=== PATIENT | male | born 1955 | race Caucasian/White ===

== ENCOUNTER 2020-04-06 12:47 | Day surgery (SDC) | payer OTHER ==
[~2020-04-06] VITALS: Ht 180.3 cm; Wt 118.2 kg
[~2020-04-06 12:47] MED LIST: Augmentin 875-1 EACH PO; BUDE6HFA INH; ESCI10 PO; ESCI20 PO; MULTI-VITAMIN1 EAC2 PO; PANT40 PO; PRAV20 PO; Pravastatin Sod20 MG PO; Prinivil10 MG PO; Prozac40 MG PO; Roxicodone5 MG PO; Synthroid/Le0.075 MG PO; THEO400 PO; VALA500 PO; Ventolin/Prove6.7 GM INH
--- NOTE | 2020-04-06 13:43 | NUR ---
04/06/20 1343 Sridevi Mario MAC CHANGED TO NURSE SEDATION AFTER ANESTHESIOLOGIST ASSESSMENT. PT AGREEABLE.
== END 2020-04-06 14:53 | disposition home or self-care (01) ==
LOC: ORSCSDS 12:47
PROVIDERS: Internal Medicine Gastroenterology
PROC: 0DBN8ZX Excision of Sigmoid Colon, Via Natural or Artificial Opening Endoscopic, Diagnostic (ICD-10-PCS; principal; 2020-04-06 14:00)
PROC: 0DBL8ZX Excision of Transverse Colon, Via Natural or Artificial Opening Endoscopic, Diagnostic (ICD-10-PCS; principal; 2020-04-06 14:00)
PROC: 0DBH8ZX Excision of Cecum, Via Natural or Artificial Opening Endoscopic, Diagnostic (ICD-10-PCS; principal; 2020-04-06 14:00)
DX: Z12.11 Encounter for screening for malignant neoplasm of colon (principal); Z86.010 Personal history of colon polyps; D12.5 Benign neoplasm of sigmoid colon; D12.3 Benign neoplasm of transverse colon; D12.0 Benign neoplasm of cecum; K57.30 Diverticulosis of large intestine without perforation or abscess without bleeding; K64.4 Residual hemorrhoidal skin tags; Z79.899 Other long term (current) drug therapy; I10 Essential (primary) hypertension; G47.33 Obstructive sleep apnea (adult) (pediatric); J44.9 Chronic obstructive pulmonary disease, unspecified; K21.9 Gastro-esophageal reflux disease without esophagitis; K76.0 Fatty (change of) liver, not elsewhere classified
CPT/HCPCS: 88305; J2704; J7120

== ENCOUNTER 2022-01-02 06:09 | Day surgery (SDC) | payer OTHER ==
[~2022-01-02] VITALS: Ht 180.3 cm; Wt 104.0 kg
[~2022-01-02 06:09] MED LIST changes: +ACTOS30 MG PO; +ADVAIR HFA 230-28 GM INH; +ALBU8HFA2 INH; +ALBU90OI6 INH; +BUME2 PO; +ELIQUIS5 M2 PO; +FAMO40 PO; +FLUT1DIS5 INH; +IPRAT-ALBUT 0.5-3 ML INH; +JARDIANCE10 MG PO; +LEVSOD75 PO; +METF500 PO; +N ACETYL PO; +ONDA4ODT MM; +POTA10T PO; +PREG75 PO; +Phentermine HCl15 MG PO; +SPIR25 PO; -Synthroid/Le0.075 MG PO; +TOPROL XL50 M1 PO; +TORSE20 PO; +Tessalon200 MG PO; +[UNRECOGNIZED DRUG - OTHER] PO
--- NOTE | 2022-01-02 09:09 | NUR ---
PT RETURNED TO RECOVERY ROOM IN [facility]. RIGHT RADIAL TR BAND SITE SOFT NON-TENDER WITH NO HEMATOMA, NO PULSATILE BLEEDING. R AC VENOUS SITE SOFT NON-TENDER WITH NO HEMATOMA, NO BLEEDING AND INTACT DRESSING. R WRIST BOARD IN PLACE. PT DENIES CHEST PAIN. CALL LIGHT IN REACH. PT'S PARTNER IN ROOM. PT EATING BREAKFAST.
--- NOTE | 2022-01-02 09:31 | NUR ---
DR AVALOS IN ROOM TO SEE PT.
[2022-01-02] MEDS ORDERED: CLOP75 PO (09:35)
--- NOTE | 2022-01-02 12:55 | NUR ---
11 CC OF AIR REMOVED OUT OF NOW DEFLATED RIGHT TR BAND WITH NO HEMATOMA, NO PULSATILE BLEEDING WRIST BOARD IN PLACE. R AC NO CHANGES. DISCHARGE INSTRUCTIONS REVIEWED ALL QUESTIONS ANSWERED.
--- NOTE | 2022-01-02 13:09 | NUR ---
NO CHANGES TO DEFLATED RIGHT TR BAND SITE.
--- NOTE | 2022-01-02 14:02 | NUR ---
DEFLATED RIGHT TR BAND REMOVED AND POLYMEM PLACED OVER RIGHT RADIAL SITE WITH WRIST BOARD IN PLACE. RIGHT RADIAL AND RIGHT AC SITES STILL SOFT NON-TENDER WITH NO HEMATOMA, NO BLEEDING. 20 G IV DISCONTINUED FROM LEFT AC WITH INTACT CANNULA. PT ESCORTED OUT VIA WHEELCHAIR ESCORT.
== END 2022-01-02 14:00 | disposition home or self-care (01) ==
LOC: MHTC 06:09
DX: I11.0 Hypertensive heart disease with heart failure (principal); I50.9 Heart failure, unspecified; G47.33 Obstructive sleep apnea (adult) (pediatric); R07.9 Chest pain, unspecified; E03.9 Hypothyroidism, unspecified; F32.A Depression, unspecified; J44.9 Chronic obstructive pulmonary disease, unspecified
CPT/HCPCS: 76937; 85347; 92978; 93460; 99152; 99153; A9270; C1725; C1753; C1769; C1874; C1887; C1894; C9600; J1644; J2250; J2370; J3010; J7030; J7040; Q9967

== ENCOUNTER → 2022-02-25 | Outpatient (CLI) | payer OTHER ==
[~2022-02-25] MED LIST changes: +CLOP75 PO
[2022-02-25 11:43] LABS: Bun/Creatinine Ratio 30.2 (12.0-20.0); Calcium, Blood 9.5 mg/dL (8.5-10.1); Creatinine, Blood 0.96 mg/dL (0.60-1.20); Potassium, Blood 3.9 mmol/L (3.5-5.5)
== END | disposition home or self-care (01) ==
LOC: LAB SHORT 09:47
PROVIDERS: Physician Assistant; Registered Nurse
DX: I50.20 Unspecified systolic (congestive) heart failure (principal); R97.20 Elevated prostate specific antigen [PSA]
CPT/HCPCS: 36415; 80048; 84153

== ENCOUNTER → 2022-10-14 | Outpatient (CLI) | payer OTHER ==
[2022-10-14 18:20] LABS: Adenovirus F 40/41 Not Detected (NOT DETECT); Astrovirus Not Detected (NOT DETECT); Campylobacter Sp Not Detected (NOT DETECT); Cryptosporidium Not Detected (NOT DETECT); Cyclospora Cayetanensis Not Detected (NOT DETECT); E. Coli O157 Not Detected (NOT DETECT); Entamoeba Histolytica Not Detected (NOT DETECT); Enteroaggregative E. coli-EAEC Not Detected (NOT DETECT); Enteropathogenic E. coli-EPEC Not Detected (NOT DETECT); Enterotoxigenic E. coli-ETEC Not Detected (NOT DETECT); Giardia Lamblia Not Detected (NOT DETECT); Norovirus GI/GII Not Detected (NOT DETECT); Plesiomonas Shigelloides Not Detected (NOT DETECT); Rotavirus A Not Detected (NOT DETECT); Salmonella Sp Not Detected (NOT DETECT); Sapovirus Not Detected (NOT DETECT); Shiga Toxin-prod E. coli-STEC Not Detected (NOT DETECT); Shigella/Enteroin E. coli-EIEC Not Detected (NOT DETECT); Vibrio Cholerae Not Detected (NOT DETECT); Vibrio Sp Not Detected (NOT DETECT); Yersinia Enterocolitica Not Detected (NOT DETECT)
== END ==
LOC: LAB SHORT 14:42 → LAB 14:42
PROVIDERS: Chiropractor
DX: R10.9 Unspecified abdominal pain (principal)
CPT/HCPCS: 87507

== ENCOUNTER 2023-03-31 18:05 | Emergency (ER) | payer OTHER ==
[~2023-03-31] VITALS: Ht 182.9 cm; Wt 113.4 kg
[2023-03-31 18:19] VITALS: BP 132/96
== END 2023-03-31 20:31 | disposition home or self-care (01) ==
LOC: ER 18:05
DX: K91.840 Postprocedural hemorrhage of a digestive system organ or structure following a digestive system procedure (principal); Y83.8 Other surgical procedures as the cause of abnormal reaction of the patient, or of later complication, without mention of misadventure at the time of the procedure; J45.909 Unspecified asthma, uncomplicated; I10 Essential (primary) hypertension; J44.9 Chronic obstructive pulmonary disease, unspecified; E03.9 Hypothyroidism, unspecified; F32.A Depression, unspecified; F17.290 Nicotine dependence, other tobacco product, uncomplicated; Z79.01 Long term (current) use of anticoagulants; Z79.899 Other long term (current) drug therapy; Z79.890 Hormone replacement therapy; Z79.84 Long term (current) use of oral hypoglycemic drugs
CPT/HCPCS: 99283

== ENCOUNTER 2023-09-04 08:02 | Day surgery (SDC) | payer OTHER ==
[~2023-09-04] VITALS: Ht 180.3 cm; Wt 110.2 kg
[~2023-09-04 08:02] MED LIST changes: +Lactated Ringer's 1,000 ML IV SCH
[2023-09-04 09:10] VITALS: BP 143/95
--- NOTE | 2023-09-04 09:29 | NUR ---
Ambulatory in Day Surgery. History, Chart, Medications and Allergies reviewed before start of procedure. Lungs clear T/O to Auscultation. Patient confirms NPO status and agrees with scheduled surgery. Patient States Post-Procedure ride home has been arranged. PT CBG 189 THIS AM, REPORTED TO DR VALENTINE AND BERKLEY MICHAELS TO PROCEED.
--- NOTE | 2023-09-04 09:30 | NUR ---
09/04/23 0930 Lester Gallardo History, Chart, Medications and Allergies reviewed before start of procedure.MONITOR INTACT WITH CONTINUOUS PULSE OXIMETRY, CONTINUOUS END TITAL CO2, AND INTERMITTENT BLOOD PRESSURE.3-LEAD EKG REVIEWED WITH PHYSICIAN PRIOR TO START OF PROCEDURE.O2 VIA POM INTACT THROUGHOUT SEDATION/PROCEDURE.See Anesthesia record.
[2023-09-04] MEDS ORDERED: propofoL 60 ML IV ONE (09:35)
[2023-09-04 10:25] VITALS: BP 127/82
[2023-09-04 10:40] VITALS: BP 131/91
--- NOTE | 2023-09-04 10:47 | NUR ---
DISCHARGE NOTE PT A&OX4, BREATHING RA, VSS, NO COMPLAINTS, TOLERATING PO FLUIDS, ABDOMEN SOFT AND NON TENDER. Patient up to Ambulate independently. Gait steady. Discharge instructions reviewed with patient. Patient verbalizes understanding. Copy given to patient to take home. Discharged via wheelchair to private car for ride home.
== END 2023-09-04 10:45 | disposition home or self-care (01) ==
LOC: ORSCMMR 08:02 → ORD 09:30 → ORSCMMR 09:30
PROVIDERS: Internal Medicine Gastroenterology
PROC: 0DBL8ZX Excision of Transverse Colon, Via Natural or Artificial Opening Endoscopic, Diagnostic (ICD-10-PCS; principal; 2023-09-04 09:30)
PROC: 0DBP8ZX Excision of Rectum, Via Natural or Artificial Opening Endoscopic, Diagnostic (ICD-10-PCS; principal; 2023-09-04 09:30)
DX: Z12.11 Encounter for screening for malignant neoplasm of colon (principal); Z86.010 Personal history of colon polyps; K64.4 Residual hemorrhoidal skin tags; K62.1 Rectal polyp; D12.3 Benign neoplasm of transverse colon; K57.30 Diverticulosis of large intestine without perforation or abscess without bleeding; K64.8 Other hemorrhoids; J44.9 Chronic obstructive pulmonary disease, unspecified; I10 Essential (primary) hypertension; I25.10 Atherosclerotic heart disease of native coronary artery without angina pectoris; F41.9 Anxiety disorder, unspecified; E11.9 Type 2 diabetes mellitus without complications; E03.9 Hypothyroidism, unspecified; Z86.711 Personal history of pulmonary embolism; E78.5 Hyperlipidemia, unspecified; Z79.02 Long term (current) use of antithrombotics/antiplatelets; Z79.84 Long term (current) use of oral hypoglycemic drugs; Z79.01 Long term (current) use of anticoagulants; Z79.899 Other long term (current) drug therapy
CPT/HCPCS: 82947; 88305; J2704; J7120